=== PATIENT | female | born 1945 | race Asian ===

== ENCOUNTER 2019-12-02 12:26 | Emergency (ER) | payer SELFPAY ==
[~2019-12-02] VITALS: Ht 152.4 cm; Wt 54.9 kg
[2019-12-02 12:33] VITALS: Ht 152.4 cm; Wt 54.9 kg
[2019-12-02 13:33] VITALS: BP 133/79
== END 2019-12-02 13:33 | disposition home or self-care (01) ==
LOC: ED 12:26
DX: B02.9 Zoster without complications (principal); H02.843 Edema of right eye, unspecified eyelid